=== PATIENT | female | born 2000 | race Caucasian/White ===

== ENCOUNTER 2020-12-07 22:41 | Inpatient (IN) | payer OTHER ==
[~2020-12-07] VITALS: Ht 162.6 cm; Wt 57.8 kg
--- NOTE | 2020-12-07 23:15 | NUR ---
PT C/O RIGHT UPPER THIGH PAIN ANSD SWELLING X 3-4 DAYS. PT STATES HAS DIFFICULTY WALKING AND BENDING.
[2020-12-07] MEDS ORDERED: CLINDAMYCIN 600 MG in IV D5W 100 ML IV ONE (23:30)
[2020-12-07] MEDS ORDERED: IV NS 0.9% 1,000 ML BAG IV ONE (23:30)
[2020-12-07] MEDS ORDERED: VANCOMYCIN 1 GM in IV D5W 250 ML IV ONE (23:30)
[2020-12-07] MEDS ORDERED: CLINDAMYCIN 900 MG/6 ML VIAL ONE (23:32)
[2020-12-07] MEDS ORDERED: VANCOMYCIN 1 GM VIAL ONE (23:33)
[2020-12-07 23:34] LABS: PLATELET COUNT (AUTO) 151 K/uL (150-450); WHITE BLOOD COUNT (AUTO) 7.3 K/uL (4.3-11.0)
[2020-12-07 23:37] LABS: BASOPHILS % (AUTO) 0.4 % (0.0-2.0); EOSINOPHILS % (AUTO) 1.2 % (0.0-6.0); HEMATOCRIT 33 % (33-45); HEMOGLOBIN 11.6 g/dL (11.5-14.8); LYMPHOCYTES # (AUTO) 1.4 K/uL (0.8-4.8); LYMPHOCYTES % (AUTO) 18.9 % (20.0-44.0); MEAN CORPUSCULAR HGB CONC 35 g/dl (31.0-36.0); MEAN CORPUSCULAR VOLUME 84 fL (82-100); MONOCYTES # (AUTO) 0.8 K/uL (0.1-1.30); MONOCYTES % (AUTO) 11.5 % (2.0-12.0); RED BLOOD CELL COUNT(AUTO) 3.94 MIL/uL (4.0-5.2)
[2020-12-07 23:42] LABS: CALCIUM, SERUM 8.5 mg/dL (8.5-10.1); CARBON DIOXIDE 25 mmol/L (21-32); CHLORIDE 105 mmol/L (98-107); CREATININE 0.7 mg/dL (0.6-1.3); GLUCOSE 96 mg/dL (74-106); POTASSIUM 3.5 mmol/L (3.5-5.1); SODIUM SERUM 142 mmol/L (136-145); UREA NITROGEN, BLOOD 8 mg/dL (7-18)
--- NOTE | 2020-12-07 23:44 | NUR ---
IV NS AND CLEOCIN STARTED PER MD ORDERS.
[2020-12-07 23:48] LABS: ALANINE AMINOTRANSFERASE 21 U/L (12-78); ALBUMIN 3.7 g/dL (3.4-5.0); ALKALINE PHOSPHATASE 57 U/L (46-116); ASPARTATE AMINOTRANSFERASE 17 U/L (15-37); BILIRUBIN,DIRECT 0.1 mg/dL (0.0-0.2); BILIRUBIN,TOTAL 0.3 mg/dL (0.2-1.0)
--- NOTE | 2020-12-07 23:48 | NUR ---
PT UNABLE TO PROVIDE URONE SAMPLE AT THIS TIME
--- NOTE | 2020-12-07 23:56 | NUR ---
PATIENT DECLINED XRAY DR. CAMILO MADE AWARE
--- NOTE | 2020-12-08 | NUR ---
[facility] SWAB COLLECTED AND SENT TO LAB. PATIENT'S BELONGINGS LIST DONE.
--- NOTE | 2020-12-08 00:54 | NUR ---
CALLED LAB FOR COVID SWAB
--- NOTE | 2020-12-08 01:18 | NUR ---
sent covid swab to lab
[2020-12-08 01:28] LABS: BILIRUBIN,URINE Negative (NEGATIVE); COLOR,URINE YELLOW (YELLOW); LEUKOCYTE ESTERASE ,URINE Negative (NEGATIVE); NITRITE, URINE Negative (NEGATIVE); PROTEIN,URINE Negative (NEGATIVE); UGLUCOSE Negative (NEGATIVE); UROBILINOGEN,URINE 0.2 EU/dL (0.2)
[2020-12-08 01:40] LABS: BACTERIA,URINE None seen /HPF (None Seen); SQUAMOUS EPITHELIAL CELL,UR Moderate /HPF (None Seen); WBC,URINE 0-2 /HPF (0-3)
[2020-12-08 01:41] LABS: MUCUS,URINE Moderate /LPF (None Seen)
--- NOTE | 2020-12-08 02:00 | NUR ---
PT CURRENTLY WAITING FOR ROOM PENDING ADMISSION.
--- NOTE | 2020-12-08 02:33 | NUR ---
per wero, from [facility] gave auth for admission
--- NOTE | 2020-12-08 02:36 | NUR ---
called [facility]. transfusion aide dr ling
[2020-12-08] MEDS ORDERED: ONDANSETRON HCL/PF 4 MG/2 ML VIAL IVP PRN (03:00)
[2020-12-08] MEDS ORDERED: ACETAMINOPHEN 325 MG TABLET PO PRN (03:00)
[2020-12-08] MEDS ORDERED: MAGNESIUM HYDROXIDE 30 ML UDC PO PRN (03:00)
[2020-12-08] MEDS ORDERED: HYDROCODONE/APAP 5/325MG TABLET PO PRN (03:00)
[2020-12-08] MEDS ORDERED: MAG HYDROX/AL HYDROX/SIMETH 30 ML UDC PO PRN (03:00)
[2020-12-08] MEDS ORDERED: Z GUARD REMEDY 2 OZ OINT TP PRN (03:00)
[2020-12-08] MEDS: CEFTRIAXONE 2 G in IV D5W 100 ML IV SCH (07:00)
--- NOTE | 2020-12-08 07:41 | NUR ---
room [phone]
--- NOTE | 2020-12-08 07:44 | NUR ---
Pt going to 323- Report given to primary RN Ray. Transported to floor per marlena NO acute distress, NO acute changes
[2020-12-08] MEDS ORDERED: CEPH500C2 PO (07:59)
[2020-12-08 08:05] VITALS: BP 103/57
[2020-12-08] MEDS: PANTOPRAZOLE 40 MG TABLET.DR PO SCH (08:09)
[2020-12-08] MEDS: IV NS 0.9% 1,000 ML IV PRN ×2 (08:17→23:22)
[2020-12-08] MEDS: VANCOMYCIN 1 GM in IV D5W 250ml IV SCH ×2 (09:33→16:01)
--- NOTE | 2020-12-08 09:38 | NUR ---
MS RN NOTES PT ADMITTED TO UNIT AT 0800 VIA [place] ACCOMPANIED BY Yanely BRIZUELA. PT ABLE TO WALKED FROM [facility] TO HER BED. PT IS A/O X4. ABLE TO MAKE NEEDS KNOWN, NO C/O PAIN OR DISCOMFORTS AT THIS TIME. PT ORIENTED TO STAFF AND ROOM. PT IS IN ROOM AIR, BREATHING EVEN AND UNLABORED, NO SOB NOTED. PT WITH REDNESS/CELLULITIS ON RIGHT UPPER LEG JUST ABOVE THE KNEE. IV ACCESS NOTED AT LAC G#20 INTACT AND PATENT, IVF OF NS @ 75ML/HR STARTED. PT SEEN AND EVALUATED BY DR SIMMS WITH ORDER TO DOWNGRADE PT FROM TELE TO MED-SURG. LUNGS CLEAR ON AUSCULTATION BILATERALLY. ABDOMEN SOFT, NON-TENDER AND NON-DISTENDED WITH POSITIVE BOWEL SOUNDS. SAFETY MEASURES INITIATED: BED PLACED IN LOWEST LOCKED POSITION WITH SIDE-RAILS UP X2. CALL LIGHT W/IN EASY REACH OF PT. WILL CONTINUE TO MONITOR PT.
[2020-12-08] MEDS: IBUPROFEN 600 MG TABLET PO PRN ×2 (12:08→20:01)
--- NOTE | 2020-12-08 12:20 | NUR ---
RN NOTES PT C/O ACHING AND BURNING PAIN ON RIGHT UPPER LEG CELLULITIS SITE. PRN MOTRIN 600MG PO GIVEN AT 1208. WILL CONTINUE TO MONITOR.
[2020-12-08 16:00] VITALS: BP 91/52
[2020-12-08] MEDS ORDERED: LURA40TA PO (18:19)
--- NOTE | 2020-12-08 18:47 | NUR ---
MS RN CLOSING NOTES PATIENT IN BED AWAKE AND WATCHING TV AT THIS TIME. A/O X4. ABLE TO MAKE NEEDS KNOWN.. AMBULATORY WITH STEADY GAIT. ON ROOM AIR, BREATHING EVEN AND UNLABORED, NO SOB NOTED DURING THE DAY. IV ACCESS ON LAC G#2O INTACT AND PATENT, IVF OF NS @ 75ML/HR INFUSING WELL, NO S/S OF INFILTRATIONS AT SITE NOTED. ALL NEEDS AND CARE ATTENDED WELL. SAFETY MEASURES KEPT IN PLACE: BED IN LOWEST LOCKED POSITION WITH SIDE-RAILS UP X2. CALL LIGHT W/IN REACH. WILL ENDORSE ROBERT TO GLUE REEL OPERATOR NURSE.
--- NOTE | 2020-12-08 19:30 | NUR ---
MS/RN OPENING NOTE RECEIVED PATIENT RESTING IN BED. AWAKE, ALERT AND ORIENTED X 4. ABLE TO MAKE NEEDS KNOWN. DENIES PAIN AT THIS TIME. CONTINUES ON ROOM AIR WITH NO S/SX OF RESPIRATORY DISTRESS NOTED. IV ACCESS TO LEFT AC #20G INTACT AND PATENT. CONTINUES ON IVF NS @ 75ML/HR. CONTINUES ON IV ABX. CALL LIGHT WITHIN REACH. ASPIRATION, FALL AND SAFETY PRECAUTIONS MAINTAINED. WILL CONTINUE TO MONITOR.
[2020-12-08 20:00] VITALS: BP 93/55
[2020-12-09] MEDS: ZOLPIDEM TARTRATE 5 MG TABLET PO PRN (00:54)
[2020-12-09] MEDS: VANCOMYCIN 1 GM in IV D5W 250ml IV SCH ×3 (00:54→17:25)
--- NOTE | 2020-12-09 00:58 | NUR ---
MS/RN NOTE PATIENT WITH C/O INSOMNIA. ADMINISTERED PRN AMBIEN WITH PENDING EFFECT. WILL CONTINUE TO MONITOR.
[2020-12-09] MEDS: CEFTRIAXONE 2 G in IV D5W 100 ML IV SCH (05:03)
--- NOTE | 2020-12-09 06:20 | NUR ---
MS/RN CLOSING NOTE PATIENT CURRENTLY RESTING IN BED. AWAKE, ALERT AND ORIENTED X 4. ABLE TO MAKE NEEDS KNOWN. DENIES PAIN AT THIS TIME. CONTINUES ON ROOM AIR WITH NO S/SX OF RESPIRATORY DISTRESS NOTED. IV ACCESS TO LEFT AC #20G INTACT AND PATENT. CONTINUES ON IVF NS @ 75ML/HR. CONTINUES ON IV ABX. CALL LIGHT WITHIN REACH. ASPIRATION, FALL AND SAFETY PRECAUTIONS MAINTAINED. WILL ENDORSE PLAN OF CARE TO ONCOMING SHIFT.
[2020-12-09 06:50] LABS: BASOPHILS # (AUTO) 0.1 K/uL (0.0-0.2); BASOPHILS % (AUTO) 0.9 % (0.0-2.0); EOSINOPHILS % (AUTO) 3.5 % (0.0-6.0); HEMATOCRIT 32 % (33-45); HEMOGLOBIN 10.9 g/dL (11.5-14.8); LYMPHOCYTES % (AUTO) 34.5 % (20.0-44.0); MEAN CORPUSCULAR HGB CONC 34 g/dl (31.0-36.0); MEAN CORPUSCULAR VOLUME 85 fL (82-100); MONOCYTES # (AUTO) 0.8 K/uL (0.1-1.30); MONOCYTES % (AUTO) 13.1 % (2.0-12.0); NEUTROPHILS # (AUTO) 2.8 K/uL (1.8-8.9); PLATELET COUNT (AUTO) 162 K/uL (150-450); RED BLOOD CELL COUNT(AUTO) 3.74 MIL/uL (4.0-5.2); WHITE BLOOD COUNT (AUTO) 5.8 K/uL (4.3-11.0)
[2020-12-09 07:31] LABS: ALBUMIN 2.7 g/dL (3.4-5.0); BILIRUBIN,TOTAL 0.3 mg/dL (0.2-1.0); CALCIUM, SERUM 7.9 mg/dL (8.5-10.1); CREATININE 0.6 mg/dL (0.6-1.3); MAGNESIUM 1.8 mg/dL (1.8-2.4); PHOSPHORUS 3.9 mg/dL (2.5-4.9); POTASSIUM 3.8 mmol/L (3.5-5.1); TOTAL PROTEIN, SERUM 5.8 g/dL (6.4-8.2)
--- NOTE | 2020-12-09 07:37 | NUR ---
WOUND CARE CONSULT: PT PRESENTS WITH RED RAISED LESION TO RT THIGH, PRESENT ON ADMISSION, NO FLUCTUANCE OR DRAINAGE, ONLY SLIGHT REDNESS. MD IN TO EXAMINE PT. DEFER TO MD FOR POSSIBLE SURGICAL CONSULT. WILL SEE PRN.
--- NOTE | 2020-12-09 07:38 | NUR ---
RN OPENING NOTE RECEIVED PATIENT SLEEPING IN BED, EASILY AWAKENED. A/O X4. ON ROOM AIR. NO SOB NOTED. NO S/S OF RESPIRATORY DISTRESS. DENIES ANY PAIN OR DISCOMFORT AT THIS TIME. IV ACCESS ON L AC #20 G, NS X 75 ML/HR, INTACT AND PATENT. SAFETY MEASURES MAINTAINED. BED IN LOWEST POSITION, BRAKES LOCKED. SIDE RAILS UP X2. CALL LIGHT WITHIN REACH. WILL CONTINUE PLAN OF CARE.
[2020-12-09 08:00] VITALS: BP 94/49
[2020-12-09] MEDS: PANTOPRAZOLE 40 MG TABLET.DR PO SCH (08:34)
--- NOTE | 2020-12-09 11:35 | NUR ---
SS consult: SS consult requested for pt with hx of substance use. Pt is a 20-year-old, female. SW met with pt at her bedside in the med-surg unit. Pt was resting and presented calm and cooperative. Pt was alert and oriented x4. Per chart, pt was brought in by ambulance on 12/08/20 with complaints of pain and swelling. Pt stated that she has been living at a sober living ([address] [place] [id number].) Pt stated that she has access to social support from her roommate, Eddie Yen, . Pt stated that she has a hx of substance abuse with prescription medication. Pt stated, "I have been clean for a year." Pt did not report hx of mental illness. Pt denied current SI/HI. Pt stated that she plans to return to the sober living facility at the time of D/C and will be provided transportation by her roommate, Eddie. SW offered the pt substance use resources. Pt declined the resources and stated that she has access to adequate substance use resources and does not need them at this time. PLAN: Pt will return to his prior living arrangement at the [facility] at the time of D/C. No further SS intervention at this time, however, SW will remain available as needed.
[2020-12-09 16:15] VITALS: BP 97/49
--- NOTE | 2020-12-09 18:01 | NUR ---
RN CLOSING NOTE PATIENT RESTING IN BED. A/O X4. ON ROOM AIR. NO SOB NOTED. NO S/S OF RESPIRATORY DISTRESS. DENIES ANY PAIN OR DISCOMFORT AT THIS TIME. IV ACCESS ON L AC #20 G, NS X 75 ML/HR, INTACT AND PATENT. NO SIGNS OF INFILTRATION. DUE MEDS GIVEN ORDERED. ALL NEEDS HAVE BEEN MET AND ATTENDED. SAFETY MEASURES MAINTAINED. BED IN LOWEST POSITION, BRAKES LOCKED. SIDE RAILS UP X2. KEPT CALL LIGHT WITHIN REACH. WILL ENDORSE CONTINUITY OF CARE TO ONCOMING SHIFT.
--- NOTE | 2020-12-09 19:30 | NUR ---
RN OPENING NOTES RECEIVED PATIENT ON BED, AWAKE AND A/O X4. ON ROOM AIR. NO SOB NOTED. NO S/S OF RESPIRATORY DISTRESS. WITH NO COMPLAINTS OF PAIN OR DISCOMFORT AT THIS TIME. WITH IV ACCESS AT LEFT AC G20 WITH IVF RUNNING AT 75ML/HR. SAFETY MEASURES MAINTAINED. BED ON LOWEST AND LOCKED POSITION WITH SIDE RAILS UP X2. CALL LIGHT WITHIN REACH. WILL CONTINUE TO MONITOR.
[2020-12-09 20:00] VITALS: BP 99/57
[2020-12-10] MEDS: ZOLPIDEM TARTRATE 5 MG TABLET PO PRN (00:09)
[2020-12-10] MEDS: VANCOMYCIN 1 GM in IV D5W 250ml IV SCH ×2 (00:17→08:31)
[2020-12-10] MEDS: IV NS 0.9% 1,000 ML IV PRN (01:39)
[2020-12-10] MEDS: CEFTRIAXONE 2 G in IV D5W 100 ML IV SCH (04:30)
--- NOTE | 2020-12-10 07:07 | NUR ---
MS RN CLOSING NOTES PATIENT RESTING ON BED AND A/O X4. ON ROOM AIR. NO SOB NOTED. NO S/S OF RESPIRATORY DISTRESS. WITH NO COMPLAINTS OF PAIN OR DISCOMFORT THROUGHOUT THE SHIFT. WITH IV ACCESS AT LEFT AC G20 WITH IVF RUNNING AT 75ML/HR. DUE MEDS GIVEN ORDERED. SAFETY MEASURES MAINTAINED. BED ON LOWEST AND LOCKED POSITION WITH SIDE RAILS UP X2. CALL LIGHT WITHIN REACH. WILL ENDORSE TO NEXT SHIFT FOR ROBERT.
--- NOTE | 2020-12-10 07:35 | NUR ---
MS/RN OPENING NOTES RECEIVED PATIENT ON BED AWAKE, ALERT AND ORIENTED X4. PATIENT IN NO APPARENT RESPIRATORY DISTRESS NOTED. NO COMPLAINED OF PAIN NOTED AT THIS TIME. WILL CONTINUE TO MONITOR.
[2020-12-10 07:44] LABS: CALCIUM, SERUM 8.2 mg/dL (8.5-10.1); CREATININE 0.7 mg/dL (0.6-1.3); POTASSIUM 4.1 mmol/L (3.5-5.1)
[2020-12-10 08:00] VITALS: BP 100/50
[2020-12-10] MEDS: PANTOPRAZOLE 40 MG TABLET.DR PO SCH (08:00)
[2020-12-10] MEDS ORDERED: SULF1TAB48 PO (09:04)
--- NOTE | 2020-12-10 09:17 | NUR ---
MS/RN OPENING NOTES RECEIVED PATIENT ON BED AWAKE, ALERT AND ORIENTED X4. PATIENT IN NO APPARENT RESPIRATORY DISTRESS NOTED. NO COMPLAINED OF PAIN NOTED AT THIS TIME. WILL CONTINUE TO MONITOR. Addendum: 12/10/20 at 0918 by EYAL BUTLER RN ERROR
--- NOTE | 2020-12-10 11:59 | NUR ---
RN NOTES PATIENT IS ALERT AND ORIENTED X4. PATIENT IS ON ROOM AIR. PATIENT IN NO APPARENT RESPIRATORY DISTRESS NOTED. NO COMPLAINED OF PAIN NOTED. SEEN AND EXAMINED BY MD WITH ORDERS MADE AND CARRIED OUT. ALL DUE MEDICATIONS WAS GIVEN. DISCHARGED INSTRUCTIONS WAS GIVEN AND PATIENT VERBALIZED UNDERSTANDING. 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
== END 2020-12-10 12:15 | disposition home or self-care (01) | DRG 383 ==
LOC: ER 22:41 → TRANSITION 12-08 04:19 → TELE 12-08 07:53 → MED 12-08 16:15
PROVIDERS: ADMIT Internal Medicine; ATTEND Internal Medicine
DX: L03.115 Cellulitis of right lower limb (principal); Z20.822 Contact with and (suspected) exposure to COVID-19; L02.415 Cutaneous abscess of right lower limb
CPT/HCPCS: 36415; 80048-TC; 80053-TC; 80061-TC; 80076-TC; 80202-TC; 81001; 83605-TC; 83735-TC; 84100-TC; 84484-TC; 84703-TC; 85025-TC; 85730-TC; 87040-TC; 87081-TC; C9803; G0378; J0696; J2405; J3370; J3490; J7030; J7060